=== PATIENT | female | born 1945 | race Caucasian/White ===

== ENCOUNTER → 2024-04-11 13:57 | Outpatient (REF) | payer MEDICARE, SELFPAY | LOC: WDC 13:57 | PROVIDERS: ATTENDING PHYSICIAN Internal Medicine | DX: Z12.31 Encounter for screening mammogram for malignant neoplasm of breast (principal) | CPT/HCPCS: 77063; 77067 ==

== ENCOUNTER → 2025-04-05 11:18 | Outpatient (REF) | payer MEDICARE, SELFPAY | LOC: WDC 11:18 | PROVIDERS: ATTENDING PHYSICIAN Internal Medicine | DX: Z12.31 Encounter for screening mammogram for malignant neoplasm of breast (principal) | CPT/HCPCS: 77063; 77067 ==